=== PATIENT | female | born 1950 | race Caucasian/White ===

== ENCOUNTER 2016-11-26 10:15 | Inpatient (IN) | payer MEDICARE ==
[~2016-11-26] VITALS: Ht 152.4 cm; Wt 72.6 kg
[2016-11-26] MEDS ORDERED: LISI-519 PO (10:48)
[2016-11-26] MEDS ORDERED: ESOM1CAP16 PO (10:48)
[2016-11-26] MEDS ORDERED: LOPE2TAB3 PO (10:48)
[2016-11-26] MEDS ORDERED: MULT1TAB84 PO (10:48)
[2016-11-26] MEDS ORDERED: LYRI75CA PO (10:48)
[2016-11-26] MEDS ORDERED: METF750T PO (10:48)
[2016-11-26] MEDS ORDERED: ALPR0.5T3 PO (10:48)
[2016-11-26] MEDS ORDERED: ESTR2TAB4 PO (10:48)
[2016-11-26] MEDS ORDERED: MELO-1 PO (10:48)
[2016-11-26] MEDS ORDERED: MEDR2.5T2 PO (10:48)
[2016-11-26] MEDS ORDERED: ZOCO20TA PO (10:48)
[2016-12-08] MEDS ORDERED: BUPIVACAINE HCL PF 0.5% 30 ML VIAL NERV BLOCK ONE (07:33)
[2016-12-08] MEDS ORDERED: PROPOFOL 200 MG/20 ML AMP IV ONE (09:06)
[2016-12-08] MEDS ORDERED: ePHEDrine/NS 25 MG/5 ML SYR IV ONE (09:06)
[2016-12-08] MEDS ORDERED: NEOSTIGMINE 3 MG/3 ML SYR IV ONE (09:07)
[2016-12-08] MEDS ORDERED: PHENYLEPH/NS 1000 MCG/10 ML SYR IV ONE (09:07)
[2016-12-08] MEDS ORDERED: ONDANSETRON HCL 4 MG/2 ML VIAL IV PUSH ONE (09:07)
[2016-12-08] MEDS ORDERED: LACTATED RINGER'S 1000 ML INJ 1,000 ML IV ONE (09:07)
[2016-12-08] MEDS ORDERED: CHLORHEXIDINE GLUCONATE 2 % 1 PACK (2 CLOTHS) TOPICAL PRN (13:00)
[2016-12-08] MEDS ORDERED: LACTATED RINGER'S 1000 ML IV PRN (13:00)
[2016-12-08] MEDS ORDERED: INSULIN HUMAN REGULAR 1,000 UNITS/10 ML VIAL SQ PRN (13:00)
[2016-12-08] MEDS ORDERED: CHLORHEXIDINE GLUCONATE 4% SOLN 120 ML BTL TOPICAL SCH (13:00)
[2016-12-08] MEDS ORDERED: POVIDONE IODINE 5% (ANTISEPSIS KIT) 4 APPLICATIONS EACH NARE PRN (13:00)
[2016-12-08] MEDS ORDERED: VANCOMYCIN 1000 MG/NS 250 ML (for <70 kg) IV SCH ×2 (13:00)
[2016-12-08] MEDS ORDERED: ROPIVACAINE PERI-ARTICULAR INJECTION. P-ARTICULR SCH ×5 (13:00)
[2016-12-08] MEDS ORDERED: SODIUM CHLORID 0.9% 500 ML IV PRN (13:00)
[2016-12-08] MEDS ORDERED: METOPROLOL TARTRATE 25 MG TAB PO PRN (13:00)
[2016-12-08 13:05] VITALS: BP 186/99; PULSE 76; RESP 20; TEMP 96.9; O2SAT 97
[2016-12-08] MEDS ORDERED: GENTAMICIN SULFATE 80 MG/2 ML VIAL ONE (13:15)
[2016-12-08] MEDS ORDERED: FAMOTIDINE 20 MG/2 ML VIAL ONE (13:44)
[2016-12-08] MEDS ORDERED: DEXAMETHASONE SOD PHOS 4 MG/ML VIAL ONE (13:44)
[2016-12-08] MEDS ORDERED: MIDAZOLAM HCL 2 MG/2 ML VIAL ONE (13:44)
[2016-12-08] MEDS ORDERED: ACETAMINOPHEN 1000 MG/100 ML VIAL IV ONE (13:44)
[2016-12-08] MEDS: ceFAZolin 2 GM PREMIX 50 ML IV SCH (14:21)
--- NOTE | 2016-12-08 16:28 | HHI.FF ---
Face to Face Verification Diagnosis: (1) Osteoarthritis of left knee Physical Therapy Gait training, Transfer training, bed to chair Knee: Total knee, Protocol: Left Canvas Knee Splint: Other (at night time while sleeping) Right LE Weight Bearing: WB as tolerated Left LE Weight Bearing: WB as tolerated Nursing RN Days per Week: 3 x Week(s): 2 Nursing: Dressing changes (clean incision with alcohol and apply dry sterile dressing ) Additional Instructions Pt/INR q Thursday and , call results to America REDDY [phone] Goal INR 1.5-1.8 I have seen patient Michelle Carbone on 12/08/16. My clinical findings support the need for the requested home health care services because: Deconditioned w/ increased weakness I certify that my clinical findings support that this patient is homebound because: Post-op weakness Unsteady gait/balance America Aburot December 08, 2016 16:28
--- NOTE | 2016-12-08 16:30 | HHI.PR ---
Immediate Post Op Note Procedure Date: December 08, 2016 Pre Op Diagnosis: L Knee OA Post Op Diagnosis: Same Surgeon: Nicolás Hernández MD Cooler Tender(s): America Aburto PA-C Procedure: L TKR Complications: None Specimen(s) removed: None Estimated blood loss: <25cc Anesthesia: General, Regional Block, Local Drains: Hemovac Tourniquet time (min at mmHg) 58 mins@250 mmHg Patient to: PACU Patient Condition: Good Implant/Devices: SEE IMPLANT LOG (if applicable) Date/Time of Procedure: SEE SURGICAL CARE RECORD Nicolás Hernández MD December 08, 2016 16:30
[2016-12-08] MEDS ORDERED: CPMMACHINE (16:31)
[2016-12-08] MEDS ORDERED: fentaNYL CITRATE 250 MCG/5 ML AMP ONE ×2 (16:44)
[2016-12-08] MEDS ORDERED: ZOLPIDEM TARTRATE 5 MG TAB PO PRN (16:45)
[2016-12-08] MEDS ORDERED: ACETAMINOPHEN/HYDROcodone 325 MG/7.5 MG TAB PO PRN (16:45)
[2016-12-08] MEDS ORDERED: ALUMINUM/MAGNESIUM/SIMETH 30 ML CUP PO PRN (16:45)
[2016-12-08] MEDS ORDERED: ONDANSETRON HCL 4 MG/2 ML VIAL IVP PRN (16:45)
[2016-12-08] MEDS ORDERED: Post-op Orders (for Pharmacy) MISC XX ONE (16:45)
[2016-12-08] MEDS ORDERED: SODIUM CHLORIDE 0.9% FLUSH 5 ML FLUSH IVF PRN (16:45)
[2016-12-08] MEDS: LACTATED RINGER'S 1000 ML INJ 1,000 ML IV SCH (17:00)
--- NOTE | 2016-12-08 17:07 | RADRPT ---
EXAM DATE/TIME: 12/08/2016 16:41 [facility] COMPARISON: No previous studies available for comparison. INDICATIONS : Post op left knee MEDICAL HISTORY : None. SURGICAL HISTORY : left knee ENCOUNTER: Initial ACUITY: 1 day PAIN SCORE: Non-responsive. LOCATION: Left knee FINDINGS: Left total knee arthroplasty is noted. Hardware is intact. Alignment is anatomic. Skin monica are pr esent ventrally. CONCLUSION: Satisfactory appearance post left TKA Jerome Wu MD on December 08, 2016 at 17:05 Board Certified Radiologist. This report was verified electronically.
[2016-12-08] MEDS ORDERED: DO NOT ADM ANY ANTICOAGULANT DRUGS PRN ×2 (17:15→17:45)
[2016-12-08] MEDS ORDERED: MORPHINE SULFATE 4 MG/ML INJ IV PRN (17:30)
[2016-12-08 18:48] VITALS: BP 109/63; PULSE 95; RESP 14; TEMP 93.5; O2SAT 93
[2016-12-08 19:39] VITALS: O2SAT 93
[2016-12-08 20:35] VITALS: BP 103/53; PULSE 98; RESP 17; TEMP 96.2; O2SAT 95
[2016-12-08] MEDS ORDERED: METFORMIN 750 MG PO SCH ×2 (21:00)
[2016-12-08] MEDS: SODIUM CHLORIDE 0.9% FLUSH 5 ML FLUSH IVF SCH (21:00)
[2016-12-08] MEDS ORDERED: NON-FORMULARY DRUG (Simvastatin (Zocor) 20 MG) PO SCH (21:00)
[2016-12-08] MEDS: PRAVASTATIN SOD 40 MG TAB PO SCH (21:08)
[2016-12-08] MEDS: ACETAMINOPHEN/HYDROcodone 325 MG/7.5 MG TAB PO PRN (21:08)
[2016-12-08] MEDS: PREGABALIN 75 MG CAP PO SCH (21:08)
[2016-12-09] VITALS (10 sets, daily range): BP systolic 80–153; BP diastolic 57–69; PULSE 82–91; RESP 16–20; TEMP 96.2–97.7; O2SAT 93–100
[2016-12-09] MEDS: ACETAMINOPHEN/HYDROcodone 325 MG/7.5 MG TAB PO PRN ×3 (05:01→17:37)
--- NOTE | 2016-12-09 06:58 | PD.ORT.PN ---
Subjective Subjective Remarks POD#1 L TKR No sob,chest pain Explained operative findings;answered multiple questions Objective Vitals Vital Signs Date Time Temp Pulse Resp B/P Pulse Ox O2 Delivery O2 Flow Rate FiO2 12/09/16 04:50 97.4 86 17 111/57 94 12/09/16 00:15 96.2 88 17 80/58 93 12/08/16 20:35 96.2 98 17 103/53 95 12/08/16 20:04 Nasal Cannula 2.00 12/08/16 19:39 93 Nasal Cannula 2.00 12/08/16 18:48 93.5 95 14 109/63 93 12/08/16 17:30 98 20 118/57 94 Nasal Cannula 2 12/08/16 17:15 99 20 117/56 93 Nasal Cannula 2 12/08/16 17:00 96 20 122/59 94 Nasal Cannula 2 12/08/16 16:45 104 20 120/60 96 Nasal Cannula 2 12/08/16 16:38 98.1 104 20 139/64 93 Nasal Cannula 2 12/08/16 13:05 96.9 76 20 186/99 97 I/O 12/08/16 12/08/16 12/08/16 12/09/16 12/09/16 12/09/16 06:59 14:59 22:59 06:59 14:59 22:59 Intake Total 1980 ml 400 ml Output Total 25 ml Balance 1955 ml 400 ml Intake Oral 480 ml IV Total 100 ml 400 ml Other 1400 ml Output Estimated Blood Loss 25 ml # Voids 1 # Bowel Movements 0 Imaging Last 24 hours Impressions Knee X-Ray 12/08/16 1633 Signed Impressions: Service Date/Time: Thursday, December 08, 2016 16:41 - CONCLUSION: Satisfactory appearance post left TKA Jerome Wu MD Objective Remarks N/V intact Neg vinnie's,no calf tenderness Assessment & Plan Assessment and Plan Ortho stable Coumadin,TEDS,sequentials for DVT prophylaxsis Discharge home today [facility] PT/RN Nicolás Hernández MD December 09, 2016 06:58
[2016-12-09 07:48] LABS: INTERNATIONAL NORMALIZED RATIO 1.9 RATIO; PROTHROMBIN TIME - PATIENT 22.1 SEC (9.8-11.6)
[2016-12-09] MEDS: PANTOPRAZOLE SOD 40 MG DELAYED RELEASE TAB PO SCH (08:32)
[2016-12-09] MEDS: LOPERAMIDE HCL 2 MG CAP PO SCH (08:32)
[2016-12-09] MEDS: LACTATED RINGER'S 1000 ML INJ 1,000 ML IV SCH ×2 (08:33→18:00)
[2016-12-09] MEDS: SODIUM CHLORIDE 0.9% FLUSH 5 ML FLUSH IVF SCH ×2 (08:33→20:49)
[2016-12-09] MEDS: LISINOPRIL 5 MG TAB PO SCH (08:33)
[2016-12-09] MEDS ORDERED: COUM1TAB PO (08:59)
[2016-12-09] MEDS ORDERED: ESOMEPRAZOLE 40 MG PO SCH (09:00)
[2016-12-09] MEDS ORDERED: ESTRADIOL 1 MG TAB PO SCH (09:00)
[2016-12-09] MEDS ORDERED: ESTRADIOL PO SCH (09:00)
[2016-12-09] MEDS ORDERED: GENTAMICIN SULFATE 80 MG/2 ML VIAL IRRIGATION ONE (09:05)
--- NOTE | 2016-12-09 09:24 | PD.CONS ---
[facility] By Orthopedic doctor Katy Reason for Consult Medical management Primary Care Physician Roly Ascencio DO Diagnoses: History of Present Illness The patient is a very pleasant 66-year-old female with past medical history of hypertension, diabetes, or lipidemia, osteoarthritis bilateral knee. She came to same day surgery for left knee surgery. She says she has bilateral osteoarthritis of the knee and she will need surgery on the other knee as well. She says she has some pain in her left knee at this time, however pain is controlled by meds. No fever or chills. No chest pain, no shortness of breath. Denies nausea, vomiting, diarrhea or constipation. She complains of dry mouth. Review of Systems Except as stated in HPI: all other systems reviewed are Neg Past Family Social History Allergies: Coded Allergies: No Known Allergies (Unverified , 12/08/16) Past Medical History Hypertension, hyperlipidemia, diabetes Past Surgical History Right inguinal hernia repair Umbilical hernia repair Tonsillectomy Adenoidectomy Reported Medications Reported Meds & Active Scripts Active Coumadin (Warfarin) 1 Mg Tab 1 Mg PO DAILY PRN Reported Multivitamin Adults (Multiple Vitamins W/ Minerals) 1 Tab 1 Tab PO DAILY Zocor (Simvastatin) 20 Mg Tab 20 Mg PO HS Metformin ER (Metformin HCl) 750 Mg Jordyn 750 Mg PO HS With evening meal Lyrica (Pregabalin) 75 Mg Cap 75 Mg PO HS Loperamide (Loperamide HCl) 2 Mg Tab 2 Mg PO DAILY One tablet after each loose stool. Not to exceed 8 tablets per day. Alprazolam 0.5 Mg Tab 0.5 Mg PO Q6H PRN Meloxicam 15 Mg Tab 15 Mg PO DAILY Lisinopril 5 Mg Tab 5 Mg PO DAILY Medroxyprogesterone Acetate 2.5 Mg Tab 2.5 Mg PO DAILY Start day 21 Estrace (Estradiol) 2 Mg Tab 2.5 Mg PO DAILY Esomeprazole DR 40 Mg Capdr 40 Mg PO DAILY Family History Father had carotid artery stenosis and had CEA. Mother healthy. Both parents living in 90 decade Social History History of smoking 1 pack per day for 30 years about 1 cigarette, currently not smoking. Occasional alcohol use Denies illicit drug use Physical Exam Vital Signs Vital Signs Date Time Temp Pulse Resp B/P Pulse Ox O2 Delivery O2 Flow Rate FiO2 12/09/16 08:51 99 21 12/09/16 08:00 96.6 82 16 104/59 93 12/09/16 07:28 Room Air 12/09/16 04:50 97.4 86 17 111/57 94 12/09/16 00:15 96.2 88 17 80/58 93 12/08/16 20:35 96.2 98 17 103/53 95 12/08/16 20:04 Nasal Cannula 2.00 12/08/16 19:39 93 Nasal Cannula 2.00 12/08/16 18:48 93.5 95 14 109/63 93 12/08/16 17:30 98 20 118/57 94 Nasal Cannula 2 12/08/16 17:15 99 20 117/56 93 Nasal Cannula 2 12/08/16 17:00 96 20 122/59 94 Nasal Cannula 2 12/08/16 16:45 104 20 120/60 96 Nasal Cannula 2 12/08/16 16:38 98.1 104 20 139/64 93 Nasal Cannula 2 12/08/16 13:05 96.9 76 20 186/99 97 Physical Exam GENERAL: This is a well-nourished, well-developed patient, in no apparent distress. SKIN: No rashes, ecchymoses or lesions. Cool and dry. HEAD: Atraumatic. Normocephalic. No temporal or scalp tenderness. EYES: Pupils equal round and reactive. Extraocular motions intact. No scleral icterus. No injection or drainage. ENT: Nose without bleeding, purulent drainage or septal hematoma. Throat without erythema, tonsillar hypertrophy or exudate. Uvula midline. Airway patent. NECK: Trachea midline. No JVD or lymphadenopathy. Supple, nontender, no meningeal signs. CARDIOVASCULAR: Regular rate and rhythm without murmurs, gallops, or rubs. RESPIRATORY: Clear to auscultation. Breath sounds equal bilaterally. No wheezes , rales, or rhonchi. GASTROINTESTINAL: Abdomen soft, non-tender, nondistended. No hepato-splenomegaly , or palpable masses. No guarding. MUSCULOSKELETAL: Left knee dressing on changed by nurses c/d/di. Extremities without clubbing, cyanosis, or edema. No joint tenderness, effusion, or edema noted. No calf tenderness. Negative Homans sign bilaterally. NEUROLOGICAL: Awake and alert. Cranial nerves II through XII intact. Motor and sensory grossly within normal limits. Five out of 5 muscle strength in all muscle groups. Normal speech. Laboratory Laboratory Tests Test 12/08/16 12/09/16 12:55 07:10 Blood Type A POSITIVE Antibody Screen NEGATIVE Blood Bank Comment Prothrombin Time 22.1 Prothromb Time International 1.9 Ratio Imaging Last Impressions Knee X-Ray 12/09/16 0000 Signed Impressions: Service Date/Time: Friday, December 09, 2016 12:21 - CONCLUSION: Left knee arthroplasty. Bo Miller MD Assessment and Plan Assessment and Plan 66-year-old female with bilateral knee osteoarthritis, hypertension, hyperlipidemia, diabetes presented to same day surgery for elective left knee surgery Bilateral osteoarthritis of the knee Doctors post total knee replacement by Dr. Burns 12/09/16. Management per orthopedic doctor. Chronic medical problems appear stable at this time. Hypertension, hyperlipidemia, diabetes. Monitor closely vital signs. Monitor blood sugar. Restart home medications. DVT prophylaxis SCD/teds. Chemical prophylaxis per surgeon of choice Thank you for this consultation. The patient appears stable at this time Code Status Full code Discussed Condition With Patient, nurse Marnie Henry MD December 09, 2016 09:24
--- NOTE | 2016-12-09 11:49 | MP ---
cc: BULMARO DELONG,SHARA Lee M.D. DATE OF SURGERY 12/08/2016 PREOPERATIVE DIAGNOSIS Left knee osteoarthritis. POSTOPERATIVE DIAGNOSIS Left knee osteoarthritis. PROCEDURE Left total knee arthroplasty. COMPONENTS Cemented [employer] SURGEON Cris Hernández MD ASSESSMENT America Aburto PA-C SPECIMEN None. ESTIMATED BLOOD LOSS Less than 25 cc. COMPLICATIONS None. ANESTHESIA General, regional anesthesia adductor canal regional anesthesia, intraarticular injection. DRAINS Two. TOURNIQUET TIME 58 minutes at 250 mmHg. CONDITION Stable. PLAN OF ACTIVITY Per orders. PROCEDURE My elder assistant, America Aburto PA-C, was present for the entire surgical case. She was medically necessary for the entire case because of the complexity of the case and to facilitate the performance of the procedure. The LABORER TANBARK at the back table was not of the skill set for this case to manipulate the instruments, e.g. the multiple different soft tissue retractors, trial implants and permanent implants including bone cement. The patient originally was scheduled for a right total knee arthroplasty but when the patient was admitted to the hospital she was found to have an insect bite on the anterior aspect of the right knee. I did not feel it was considered to be medically safe to proceed ahead with surgery. The patient actually is scheduled for staged total knee arthroplasties on the right and the left, so it was decided to change the consents, for the patient to have a left total knee arthroplasty today instead of a right total knee arthroplasty today. The patient was brought into the operating room, had satisfactory regional adductor canal anesthesia, followed by general anesthesia by the Department of Anesthesia. The left lower extremity was prepped and draped in the usual sterile manner. The extremity was exsanguinated by elevation and the tourniquet was inflated to 250 mmHg. A small anterior medial exposure to the knee was made. Paramedian capsulotomy was performed, the patella dislocated laterally. The patient was found to have severe arthritis of the patellofemoral compartment, also mild lateral subluxation. The patient also was found to have significant arthritis involving the medial compartment and to a lesser degree of the lateral compartment. The remaining portion of the medial and lateral meniscus were removed. The anterior cruciate ligament was removed. The prepatellar fat pad was excised. The posterior cruciate ligament was preserved. Using the [employer] total knee arthroplasty system, IM guide was used at the distal femur to accept a 62.5-mm femoral component, a 5-degree valgus cut. Extramedullary guide was used for the tibia to accept a 67-mm tibial component. The undersurface of the patella was removed to accept a 28-mm, three-pronged patellar prosthesis. Appropriate balancing was made with a 12-mm insert. All trial components were removed and preparation for cementing was made. At this time the knee was injected with local anesthesia provided by the Department of Pharmacy. Two packages Palacos high viscosity bone cement by [employer] was used. First the tibial component was cemented which is a 67-mm tibial component, followed by the femoral component which is a 62.5-mm femoral component. Then the patella was cemented which is a 28-mm three-pronged patellar prosthesis. All excess bone cement was removed. The bone cement was allowed to harden at 12-1/2 minutes. The of the 12 x 67-mm polyethylene plastic was assembled onto the tibial tray with appropriate clipping mechanism. The tourniquet was deflated. The wound was irrigated with 4000 cc of sterile saline. The wound itself was dry. Using no thumbs technique, approximately a 2-inch lateral release was performed with the patella and with this the patella was found to track well within the patellofemoral compartment. The wound was closed in routine manner with two 1/8-inch Hemovac drains hooked up an Autovac system. The capsule and extensor mechanism were repaired using multiple interrupted #2 Ticron sutures. The subcuticular layer was closed with 0 Vicryl and 2-0 Vicryl. The skin was approximated with skin monica. Sterile dressings were applied. The patient tolerated the procedure well and arrived in the recovery room in stable and satisfactory condition. MD SHELBI Baron/SSB /4:18 PM /11:33 AM
[2016-12-09] MEDS ORDERED: PHENYLEPH/NS 1000 MCG/10 ML SYR IV ONE ×2 (12:00)
[2016-12-09] MEDS ORDERED: PROPOFOL 200 MG/20 ML AMP IV ONE (12:00)
[2016-12-09] MEDS ORDERED: ePHEDrine/NS 25 MG/5 ML SYR IV ONE (12:00)
[2016-12-09] MEDS ORDERED: ONDANSETRON HCL 4 MG/2 ML VIAL IV PUSH ONE (12:00)
[2016-12-09] MEDS ORDERED: NEOSTIGMINE 3 MG/3 ML SYR IV ONE (12:00)
--- NOTE | 2016-12-09 12:55 | RADRPT ---
EXAM DATE/TIME: 12/09/2016 12:21 [facility] COMPARISON: No previous studies available for comparison. INDICATIONS : Left knee pain; fell on knee yesterday and today. MEDICAL HISTORY : None. SURGICAL HISTORY : Total knee replacement, left. ENCOUNTER: Subsequent ACUITY: 2 days PAIN SCORE: 7/10 LOCATION: Left knee FINDINGS: Two view examination of the left knee demonstrates left knee arthroplasty. Postsurgical changes. No h ardware loosening or fracture. Extensive soft tissue swelling anteriorly. CONCLUSION: Left knee arthroplasty. Bo Miller MD on December 09, 2016 at 12:53 Board Certified Radiologist. This report was verified electronically.
[2016-12-09] MEDS ORDERED: GENTAMICIN SULFATE 80 MG/2 ML VIAL ONE (13:08)
[2016-12-09 13:50] LABS: HEMATOCRIT 30.2 % (35.0-46.0); REVIEW FLAG FINAL
[2016-12-09] MEDS ORDERED: fentaNYL CITRATE 250 MCG/5 ML AMP ONE (14:18)
[2016-12-09] MEDS ORDERED: ACETAMINOPHEN 1000 MG/100 ML VIAL IV ONE (14:45)
[2016-12-09] MEDS ORDERED: MIDAZOLAM HCL 2 MG/2 ML VIAL ONE (14:46)
[2016-12-09] MEDS ORDERED: METOCLOPRAMIDE HCL 10 MG/2 ML VIAL ONE (14:47)
[2016-12-09] MEDS ORDERED: FAMOTIDINE 20 MG/2 ML VIAL ONE (14:47)
[2016-12-09] MEDS ORDERED: VANCOMYCIN HCL 1000 MG VIAL ONE (15:23)
[2016-12-09] MEDS: ceFAZolin 2 GM PREMIX 50 ML IV SCH (15:25)
[2016-12-09] MEDS ORDERED: WARFARIN SOD 5 MG TAB PO SCH (16:00)
--- NOTE | 2016-12-09 16:19 | OTSOAPIP ---
TIME SESSION COMPLETED: PM TREATMENT TIME: 0 MINS. CHART REVIEWED. ATTEMPTED TO SEE FOR OT HOWEVER OFF FLOOR. WILL FOLLOW ABLE. Therapist: JULEE HINDS OT/L Signature on file
--- NOTE | 2016-12-09 16:29 | HHI.PR ---
Immediate Post Op Note Procedure Date: December 09, 2016 Pre Op Diagnosis: L Knee Traumatic Wound Dehiscence S/P L TKR Post Op Diagnosis: Same Surgeon: Nicolás Hernández MD Powder Core Tester(s): Staff Procedure: L knee Irrigation and debridement;Repair wound dehiscence Complications: None Estimated blood loss: Minimal Anesthesia: General Drains: Hemovac Patient to: PACU Patient Condition: Good Nicolás Hernández MD December 09, 2016 16:29
[2016-12-09] MEDS ORDERED: DO NOT ADM ANY ANTICOAGULANT DRUGS PRN (17:15)
--- NOTE | 2016-12-09 17:15 | RADRPT ---
EXAM DATE/TIME: 12/09/2016 16:57 [facility] COMPARISON: KNEE LEFT LTD (1 OR 2VWS), December 09, 2016, 12:21. INDICATIONS : Post op left knee replacement. MEDICAL HISTORY : None. SURGICAL HISTORY : None. ENCOUNTER: Initial ACUITY: 1 day PAIN SCORE: 0/10 LOCATION: Left knee FINDINGS: AP and lateral views of the left knee demonstrate changes consistent with recent total knee arthropla sty with metallic hardware in place in the distal femur and proximal tibia. There is a radiolucent pa tellar component. There is soft tissue gas present, as expected. A surgical drain is in place. CONCLUSION: Expected changes following recent left total knee arthroplasty. Jerome Guzman MD on December 09, 2016 at 17:13 Board Certified Radiologist. This report was verified electronically.
[2016-12-09] MEDS: NYSTAT/DIPHENHY/LIDO MOUTHWASH (Adult) 120ML SWISH-SWAL SCH ×2 (17:49→20:52)
--- NOTE | 2016-12-09 20:45 | MP ---
cc: SHARA MOSES DATE OF SURGERY 12/09/16 PREOPERATIVE DIAGNOSIS 1. Left knee, atraumatic wound dehiscence. 2. Status post left total knee arthroplasty. POSTOPERATIVE DIAGNOSIS 1. Left knee, atraumatic wound dehiscence. 2. Status post left total knee arthroplasty. PROCEDURE Left knee irrigation and debridement; repair of traumatic wound dehiscence SURGEON Betty Sterling MD SOILS TECHNICIAN Staff ANESTHESIA General COMPLICATIONS None ESTIMATED BLOOD LOSS None. TOURNIQUET TIME None used. DRAINS Two Hemovac drains DISPOSITION Condition stable PLAN OF ACTIVITY As per orders. INDICATIONS A 66-year-old female sustained a traumatic wound dehiscence of her left knee this morning. It was unwitnessed, but she stated that she was raising her leg while sitting in the chair and she fell out of the chair onto her left knee. She had wound dehiscence. The patient was made n.p.o. Sterile dressings were repeatedly applied and the patient was taken to the operating room for surgical management. PROCEDURE IN DETAIL The patient was brought into operating room and had satisfactory general endotracheal anesthesia by Dr. Memo Mercado, Department of Anesthesia. Left lower extremity was prepped and draped in the usual sterile manner. The patient had complete 100% dehiscence of the wound. All of the monica were removed, also the subcutaneous Vicryl sutures were also dehisced. The patient had mild dehiscence involving the capsule inferiorly. The wound itself was irrigated with water pick irrigation using 3000 mL of sterile saline antibiotic solution. Debridement was performed and evacuation of hematoma. Very meticulous debridement was made over the soft tissues. The capsule was repaired with #2 Tycron suture. Subcutaneous layers was closed in multiple layers using 0 Vicryl and 2-0 Vicryl suture. The skin was approximated with multiple interrupted 2-0 nylon and 3-0 nylon sutures. Wound was closed over two Hemovac drains. Sterile dressings were applied. The patient tolerated the procedure well and went to recovery room in stable and satisfactory condition. MD SHELBI Baron/ /4:33 PM /8:35 PM
[2016-12-09] MEDS: PRAVASTATIN SOD 40 MG TAB PO SCH (20:49)
[2016-12-09] MEDS: PREGABALIN 75 MG CAP PO SCH (20:49)
[2016-12-10] VITALS (8 sets, daily range): BP systolic 128–179; BP diastolic 63–83; PULSE 17–109; RESP 17–19; TEMP 96.4–98.9; O2SAT 92–99
[2016-12-10] MEDS: ACETAMINOPHEN/HYDROcodone 325 MG/7.5 MG TAB PO PRN ×4 (02:43→16:37)
[2016-12-10 06:04] LABS: HEMATOCRIT 23.5 % (35.0-46.0); REVIEW FLAG FINAL
[2016-12-10 06:14] LABS: INTERNATIONAL NORMALIZED RATIO 1.8 RATIO; PROTHROMBIN TIME - PATIENT 20.5 SEC (9.8-11.6)
[2016-12-10] MEDS: LACTATED RINGER'S 1000 ML INJ 1,000 ML IV SCH (06:30)
[2016-12-10] MEDS: ALPRAZolam 0.5 MG TAB PO PRN ×2 (06:36→19:55)
--- NOTE | 2016-12-10 07:39 | PD.ORT.PN ---
Subjective Subjective Remarks pt complaining of post op knee pain Objective Vitals Vital Signs Date Time Temp Pulse Resp B/P Pulse Ox O2 Delivery O2 Flow Rate FiO2 12/10/16 07:35 97.3 86 17 146/83 99 12/10/16 06:30 96.6 95 19 179/76 96 12/10/16 02:30 96.4 17 17 142/67 97 12/09/16 22:30 97.0 85 18 102/61 98 12/09/16 21:42 99 Nasal Cannula 2.00 12/09/16 18:30 96.4 84 18 120/59 100 12/09/16 17:16 Nasal Cannula 2.00 12/09/16 17:00 89 17 118/59 96 Nasal Cannula 2 12/09/16 16:45 93 22 120/57 96 Nasal Cannula 2 12/09/16 16:30 97.8 95 12 130/66 96 Nasal Cannula 2 12/09/16 12:00 97.1 84 18 110/59 97 12/09/16 10:30 97.7 89 18 140/66 98 12/09/16 09:30 97.5 91 20 153/69 96 12/09/16 08:51 99 21 12/09/16 08:00 96.6 82 16 104/59 93 I/O 12/09/16 12/09/16 12/09/16 12/10/16 12/10/16 12/10/16 07:00 15:00 23:00 07:00 15:00 23:00 Intake Total 880 ml 1480 ml 480 ml Output Total 110 ml Balance 880 ml 1370 ml 480 ml Intake Oral 480 ml 480 ml 480 ml IV Total 400 ml Other 1000 ml Output Drainage Total 60 ml Estimated Blood Loss 50 ml # Voids 3 1 1 # Bowel Movements 0 0 0 Result Diagram: 12/10/16 0515 Other Results Laboratory Tests Test 12/10/16 05:15 Prothrombin Time 20.5 SEC (9.8-11.6) Prothromb Time International 1.8 RATIO Ratio Imaging Last 24 hours Impressions Knee X-Ray 12/08/16 1633 Signed Impressions: Service Date/Time: Thursday, December 08, 2016 16:41 - CONCLUSION: Satisfactory appearance post left TKA Jerome Wu MD Objective Remarks left knee dressing dry and intact, ice on knee, drain intact N/V intact Neg vinnie's,no calf tenderness Assessment & Plan Assessment and Plan POD # 2 s/p L TKA, POD #1 s/p L knee repair of wound dehiscence PT-WBAT low dose coumadin for dvt prop- hold today per protocol iron sulfate BID hgb 8.1 this am, recheck CBC tomorrow am IV abx x 48 hours anticipate discharge home with [facility] Thursday America Aburto December 10, 2016 07:39
[2016-12-10] MEDS: FERROUS SULFATE 325 MG (65 MG ELEMENTAL IRON) TAB PO SCH ×2 (08:55→19:55)
[2016-12-10] MEDS: PANTOPRAZOLE SOD 40 MG DELAYED RELEASE TAB PO SCH (08:55)
[2016-12-10] MEDS: LISINOPRIL 5 MG TAB PO SCH (08:55)
[2016-12-10] MEDS: LOPERAMIDE HCL 2 MG CAP PO SCH (08:55)
[2016-12-10] MEDS: NYSTAT/DIPHENHY/LIDO MOUTHWASH (Adult) 120ML SWISH-SWAL SCH ×4 (08:56→20:34)
[2016-12-10] MEDS: SODIUM CHLORIDE 0.9% FLUSH 5 ML FLUSH IVF SCH ×2 (09:00→19:56)
--- NOTE | 2016-12-10 09:05 | HHI.PR ---
Subjective Remarks Patient did fell yesterday and she went to the OR, now she has a Hemovac in place. Says she has some pain in her left knee. Denies fever or chills. No sore throat at this time. Feels much better. Denies cough. Denies chest pain or palpitations. No nausea, vomiting, diarrhea or constipation. Objective Vitals Vital Signs Date Time Temp Pulse Resp B/P Pulse Ox O2 Delivery O2 Flow Rate FiO2 12/10/16 07:35 97.3 86 17 146/83 99 12/10/16 06:30 96.6 95 19 179/76 96 12/10/16 02:30 96.4 17 17 142/67 97 12/09/16 22:30 97.0 85 18 102/61 98 12/09/16 21:42 99 Nasal Cannula 2.00 12/09/16 18:30 96.4 84 18 120/59 100 12/09/16 17:16 Nasal Cannula 2.00 12/09/16 17:00 89 17 118/59 96 Nasal Cannula 2 12/09/16 16:45 93 22 120/57 96 Nasal Cannula 2 12/09/16 16:30 97.8 95 12 130/66 96 Nasal Cannula 2 12/09/16 12:00 97.1 84 18 110/59 97 12/09/16 10:30 97.7 89 18 140/66 98 12/09/16 09:30 97.5 91 20 153/69 96 I/O 12/09/16 12/09/16 12/09/16 12/10/16 12/10/16 12/10/16 07:00 15:00 23:00 07:00 15:00 23:00 Intake Total 880 ml 1480 ml 480 ml Output Total 110 ml Balance 880 ml 1370 ml 480 ml Intake Oral 480 ml 480 ml 480 ml IV Total 400 ml Other 1000 ml Output Drainage Total 60 ml Estimated Blood Loss 50 ml # Voids 3 1 1 # Bowel Movements 0 0 0 Result Diagram: 12/10/16 0515 Imaging Last Impressions Knee X-Ray 12/09/16 0000 Signed Impressions: Service Date/Time: Friday, December 09, 2016 16:57 - CONCLUSION: Expected changes following recent left total knee arthroplasty. Jerome Guzman MD Objective Remarks GENERAL: This is a well-nourished, well-developed patient, in no apparent distress. SKIN: No rashes, ecchymoses or lesions. Cool and dry. HEAD: Atraumatic. Normocephalic. No temporal or scalp tenderness. EYES: Pupils equal round and reactive. Extraocular motions intact. No scleral icterus. No injection or drainage. ENT: Nose without bleeding, purulent drainage or septal hematoma. Throat without erythema, tonsillar hypertrophy or exudate. Uvula midline. Airway patent. NECK: Trachea midline. No JVD or lymphadenopathy. Supple, nontender, no meningeal signs. CARDIOVASCULAR: Regular rate and rhythm without murmurs, gallops, or rubs. RESPIRATORY: Clear to auscultation. Breath sounds equal bilaterally. No wheezes , rales, or rhonchi. GASTROINTESTINAL: Abdomen soft, non-tender, nondistended. No hepato-splenomegaly , or palpable masses. No guarding. MUSCULOSKELETAL: Left knee dressing c/d/i, hemovac in place. Extremities without clubbing, cyanosis, or edema. No calf tenderness. Negative Homans sign bilaterally. NEUROLOGICAL: Awake and alert. Cranial nerves II through XII intact. Motor and sensory grossly within normal limits. Five out of 5 muscle strength in all muscle groups. Normal speech. A/P Assessment and Plan 66-year-old female with bilateral knee osteoarthritis, hypertension, hyperlipidemia, diabetes presented to same day surgery for elective left knee surgery Bilateral osteoarthritis of the knee Status post left total knee replacement by Dr. Burns 12/09/16, she fell 12/09 and now has a wound vac in place. Management per orthopedic doctor. Chronic medical problems appear stable at this time. Hypertension, hyperlipidemia, diabetes. Monitor closely vital signs. Monitor blood sugar. Restart home medications. Tachycardia and slightly elevated BP likely 2/2 pain. DVT prophylaxis SCD/teds. Chemical prophylaxis per surgeon of choice Thank you for this consultation. The patient appears stable at this time. Monitor. Code Status Full code Discussed Condition With Patient, nurse Medically stable at this time. H.H dropped to 8.1 from 10. Monitor. Marnie Henry MD December 10, 2016 09:05
[2016-12-10] MEDS: WARFARIN SOD 5 MG TAB PO SCH (16:00)
[2016-12-10] MEDS: PRAVASTATIN SOD 40 MG TAB PO SCH (19:55)
[2016-12-10] MEDS: PREGABALIN 75 MG CAP PO SCH (19:55)
[2016-12-11] VITALS: BP 130/71; PULSE 109; RESP 19; TEMP 98.4; O2SAT 93
[2016-12-11] MEDS: ACETAMINOPHEN/HYDROcodone 325 MG/7.5 MG TAB PO PRN ×4 (04:55→20:00)
[2016-12-11] MEDS: LACTATED RINGER'S 1000 ML INJ 1,000 ML IV SCH ×2 (05:28→20:00)
[2016-12-11 06:14] LABS: INTERNATIONAL NORMALIZED RATIO 1.2 RATIO; PROTHROMBIN TIME - PATIENT 13.8 SEC (9.8-11.6)
[2016-12-11 06:23] LABS: HEMATOCRIT 26.4 % (35.0-46.0); MEAN CELL VOLUME 82.4 FL (80.0-100.0); MEAN CORPUSCULAR HEMOGLOBIN 27.6 PG (27.0-34.0); MEAN CORPUSCULAR HGB CONC 33.5 % (32.0-36.0); PLATELET COUNT 176 TH/MM3 (150-450); RED BLOOD COUNT 3.21 MIL/MM3 (4.00-5.30); RED CELL DISTRIBUTION WIDTH 13.3 % (11.6-17.2); REVIEW FLAG FINAL; WHITE BLOOD COUNT 11.1 TH/MM3 (4.0-11.0)
[2016-12-11 08:00] VITALS: BP 144/76; PULSE 103; RESP 18; TEMP 99.3; O2SAT 92
[2016-12-11] MEDS ORDERED: DEXTROSE 50% IN WATER 50 ML VIAL(D50) IV PRN (08:30)
[2016-12-11] MEDS ORDERED: GLUCAGON 1 MG/ML VIAL OTHER PRN (08:30)
[2016-12-11] MEDS: SODIUM CHLORIDE 0.9% FLUSH 5 ML FLUSH IVF SCH ×2 (09:00→21:00)
[2016-12-11] MEDS: NYSTAT/DIPHENHY/LIDO MOUTHWASH (Adult) 120ML SWISH-SWAL SCH ×4 (09:32→20:01)
[2016-12-11] MEDS: LOPERAMIDE HCL 2 MG CAP PO SCH (09:32)
[2016-12-11] MEDS: FERROUS SULFATE 325 MG (65 MG ELEMENTAL IRON) TAB PO SCH ×2 (09:32→19:56)
[2016-12-11] MEDS: PANTOPRAZOLE SOD 40 MG DELAYED RELEASE TAB PO SCH (09:32)
[2016-12-11] MEDS: LISINOPRIL 5 MG TAB PO SCH (09:32)
[2016-12-11] MEDS: INSULIN ASPART SUPPLEMENTAL SCALE SQ SCH ×3 (11:00→20:01)
[2016-12-11 12:00] VITALS: BP 129/60; PULSE 97; RESP 18; TEMP 97.4; O2SAT 94
--- NOTE | 2016-12-11 13:57 | HHI.PR ---
Subjective Remarks Follow-up left knee arthroplasty. States she is doing better ambulating with a walker, at her side. She is determined to go home. Discussed with RN Objective Vitals Vital Signs Date Time Temp Pulse Resp B/P Pulse Ox O2 Delivery O2 Flow Rate FiO2 12/11/16 10:31 18 12/11/16 08:00 99.3 103 18 144/76 92 12/11/16 00:00 98.4 109 19 130/71 93 12/10/16 20:00 98.7 109 18 146/73 93 12/10/16 18:06 Nasal Cannula 2.00 12/10/16 15:54 98.9 96 17 143/78 93 I/O 12/10/16 12/10/16 12/10/16 12/11/16 12/11/16 12/11/16 07:00 15:00 23:00 07:00 15:00 23:00 Intake Total 480 ml 0 ml 240 ml 240 ml Output Total 110 ml Balance 480 ml -110 ml 240 ml 240 ml Intake Oral 480 ml 0 ml 240 ml 240 ml Drainage Total 110 ml # Voids 1 1 1 2 # Bowel Movements 0 0 1 0 Result Diagram: 12/11/16 0545 Imaging Last Impressions Knee X-Ray 12/09/16 0000 Signed Impressions: Service Date/Time: Friday, December 09, 2016 16:57 - CONCLUSION: Expected changes following recent left total knee arthroplasty. Jerome Guzman MD Objective Remarks GENERAL: This is a well-nourished, well-developed patient, in no apparent distress. SKIN: No rashes, ecchymoses or lesions. Cool and dry. HEAD: Atraumatic. Normocephalic. No temporal or scalp tenderness. EYES: Pupils equal round and reactive. Extraocular motions intact. No scleral icterus. No injection or drainage. ENT: Nose without bleeding, purulent drainage or septal hematoma. Throat without erythema, tonsillar hypertrophy or exudate. Uvula midline. Airway patent. NECK: Trachea midline. No JVD or lymphadenopathy. Supple, nontender, no meningeal signs. CARDIOVASCULAR: Regular rate and rhythm without gallops, or rubs. Systolic murmur RESPIRATORY: Clear to auscultation. Breath sounds equal bilaterally. No wheezes , rales, or rhonchi. GASTROINTESTINAL: Abdomen soft, non-tender, nondistended. No hepato-splenomegaly , or palpable masses. No guarding. MUSCULOSKELETAL: Left knee dressing c/d/i Extremities without clubbing, cyanosis, or edema. No calf tenderness. Negative Homans sign bilaterally. NEUROLOGICAL: Awake and alert. Cranial nerves II through XII intact. Motor and sensory grossly within normal limits. Five out of 5 muscle strength in all muscle groups. Normal speech. A/P Problem List: (1) Osteoarthritis of left knee ICD Code: M17.12 Status: Acute Assessment and Plan 66-year-old female with bilateral knee osteoarthritis, hypertension, hyperlipidemia, diabetes presented to same day surgery for elective left knee surgery Bilateral osteoarthritis of the knee Status post left total knee replacement by Dr. Burns 12/09/16, she fell 12/09 wound vac placed which was already discontinued. Stable continue postoperative care with physical therapy, wound care, incentive spirometry, pain management and DVT prophylaxis with Coumadin Management per orthopedic doctor. Anemia secondary to acute blood loss. Monitor date hemoglobin the morning Mild leukocytosis likely reactive. Monitor for infection check temperature. Chronic medical problems appear stable at this time. Hypertension, hyperlipidemia, diabetes. Monitor closely vital signs. Monitor blood sugar. Restart home medications. Tachycardia and slightly elevated BP likely 2/2 pain. DVT prophylaxis SCD/teds. Coumadin Discharge Planning Discharge per orthopedic surgery Migel Camacho MD December 11, 2016 13:56
[2016-12-11 15:57] VITALS: O2SAT 93
[2016-12-11 16:00] VITALS: BP 130/67; PULSE 104; RESP 18; TEMP 98; O2SAT 95
--- NOTE | 2016-12-11 16:09 | PD.ORT.PN ---
Subjective Subjective Remarks pt doing better, ready to be discharged home Objective Vitals Vital Signs Date Time Temp Pulse Resp B/P Pulse Ox O2 Delivery O2 Flow Rate FiO2 12/11/16 15:57 93 Nasal Cannula 2.00 12/11/16 12:00 97.4 97 18 129/60 94 12/11/16 10:31 18 12/11/16 08:00 99.3 103 18 144/76 92 12/11/16 00:00 98.4 109 19 130/71 93 12/10/16 20:00 98.7 109 18 146/73 93 12/10/16 18:06 Nasal Cannula 2.00 I/O 12/10/16 12/10/16 12/10/16 12/11/16 12/11/16 12/11/16 07:00 15:00 23:00 07:00 15:00 23:00 Intake Total 480 ml 0 ml 240 ml 240 ml Output Total 110 ml Balance 480 ml -110 ml 240 ml 240 ml Intake Oral 480 ml 0 ml 240 ml 240 ml Drainage Total 110 ml # Voids 1 1 1 2 # Bowel Movements 0 0 1 0 Result Diagram: 12/11/16 0545 Other Results Laboratory Tests Test 12/11/16 05:45 Prothrombin Time 13.8 SEC (9.8-11.6) Prothromb Time International 1.2 RATIO Ratio Imaging Last 24 hours Impressions Knee X-Ray 12/08/16 1633 Signed Impressions: Service Date/Time: Thursday, December 08, 2016 16:41 - CONCLUSION: Satisfactory appearance post left TKA Jerome Wu MD Objective Remarks seen by Dr. Nicolás Hernández and charge nurse, Winsome left knee dressing dry and intact N/V intact Neg vinnie's,no calf tenderness Assessment & Plan Assessment and Plan POD # 3 s/p L TKA, POD #2 s/p L knee repair of wound dehiscence PT-WBAT low dose coumadin for dvt prop- rx was sent to [facility] pain rx in chart discharge today with [facility] nursing and PT, orthopedically stable America Aburto December 11, 2016 16:09
[2016-12-11] MEDS: WARFARIN SOD 5 MG TAB PO SCH (17:00)
[2016-12-11] MEDS: PREGABALIN 75 MG CAP PO SCH (19:56)
[2016-12-11] MEDS: PRAVASTATIN SOD 40 MG TAB PO SCH (19:56)
[2016-12-11 20:00] VITALS: BP 130/60; PULSE 101; RESP 20; TEMP 97.7; O2SAT 93
[2016-12-12] VITALS: BP 125/71; PULSE 101; RESP 18; TEMP 97.6; O2SAT 94
[2016-12-12] MEDS: ACETAMINOPHEN/HYDROcodone 325 MG/7.5 MG TAB PO PRN ×2 (04:37→11:47)
[2016-12-12] MEDS: INSULIN ASPART SUPPLEMENTAL SCALE SQ SCH ×2 (05:47→11:00)
[2016-12-12 06:51] LABS: INTERNATIONAL NORMALIZED RATIO 1.2 RATIO
--- NOTE | 2016-12-12 07:14 | PD.ORT.PN ---
Subjective Subjective Remarks pt doing well, ready to be discharged home discharge was held yesterday due to home health not being approved by insurance yet Objective Vitals Vital Signs Date Time Temp Pulse Resp B/P Pulse Ox O2 Delivery O2 Flow Rate FiO2 12/12/16 00:00 97.6 101 18 125/71 94 12/11/16 20:00 97.7 101 20 130/60 93 12/11/16 16:00 98.0 104 18 130/67 95 12/11/16 15:57 93 Nasal Cannula 2.00 12/11/16 15:17 18 12/11/16 12:00 97.4 97 18 129/60 94 12/11/16 08:00 99.3 103 18 144/76 92 I/O 12/11/16 12/11/16 12/11/16 12/12/16 12/12/16 12/12/16 07:00 15:00 23:00 07:00 15:00 23:00 Intake Total 240 ml 600 ml 780 ml 240 ml Output Total 600 ml Balance 240 ml 600 ml 780 ml -360 ml Intake Oral 240 ml 600 ml 780 ml 240 ml Output Urine Total 600 ml # Voids 2 3 2 1 # Bowel Movements 0 1 1 0 Result Diagram: 12/11/16 0545 Other Results Laboratory Tests Test 12/12/16 06:19 Prothrombin Time 13.0 SEC (9.8-11.6) Prothromb Time International 1.2 RATIO Ratio Imaging Last 24 hours Impressions Knee X-Ray 12/08/16 1633 Signed Impressions: Service Date/Time: Thursday, December 08, 2016 16:41 - CONCLUSION: Satisfactory appearance post left TKA Jerome Wu MD Objective Remarks seen by Dr. Nicolás Hernández left knee dressing dry and intact N/V intact Neg vinnie's,no calf tenderness Assessment & Plan Assessment and Plan POD # 4 s/p L TKA, POD #3 s/p L knee repair of wound dehiscence PT-WBAT low dose coumadin for dvt prop- rx was sent to [facility] pain rx in chart discharge today with [facility] nursing and PT, orthopedically stable America Aburto December 12, 2016 07:14
[2016-12-12 08:00] VITALS: BP 135/63; PULSE 104; RESP 18; TEMP 98; O2SAT 93
[2016-12-12] MEDS: LACTATED RINGER'S 1000 ML INJ 1,000 ML IV SCH (08:30)
[2016-12-12] MEDS: SODIUM CHLORIDE 0.9% FLUSH 5 ML FLUSH IVF SCH (09:00)
[2016-12-12] MEDS: NYSTAT/DIPHENHY/LIDO MOUTHWASH (Adult) 120ML SWISH-SWAL SCH ×2 (09:05→11:46)
[2016-12-12] MEDS: FERROUS SULFATE 325 MG (65 MG ELEMENTAL IRON) TAB PO SCH (09:09)
[2016-12-12] MEDS: PANTOPRAZOLE SOD 40 MG DELAYED RELEASE TAB PO SCH (09:09)
[2016-12-12] MEDS: LOPERAMIDE HCL 2 MG CAP PO SCH (09:09)
[2016-12-12] MEDS: LISINOPRIL 5 MG TAB PO SCH (09:09)
[2016-12-12] MEDS: ALPRAZolam 0.5 MG TAB PO PRN (09:09)
[2016-12-12] MEDS ORDERED: WARFARIN SOD 5 MG TAB PO ONE (12:00)
[2016-12-12 12:44] VITALS: O2SAT 94
[2016-12-12 12:47] VITALS: RESP 18
[2016-12-12] MEDS ORDERED: HYDR-3288 PO (14:52)
--- NOTE | 2016-12-12 17:23 | HHI.PR ---
Subjective Remarks f/u for medical management patient stated she is very anxious to go home and wants to go home immediately. denied any pain. she stated she has no concerns. remains afebrile. Objective Vitals Vital Signs Date Time Temp Pulse Resp B/P Pulse Ox O2 Delivery O2 Flow Rate FiO2 12/12/16 12:47 18 12/12/16 12:44 94 12/12/16 08:00 98.0 104 18 135/63 93 12/12/16 00:00 97.6 101 18 125/71 94 12/11/16 20:00 97.7 101 20 130/60 93 I/O 12/11/16 12/11/16 12/11/16 12/12/16 12/12/16 12/12/16 07:00 15:00 23:00 07:00 15:00 23:00 Intake Total 240 ml 600 ml 780 ml 240 ml Output Total 600 ml Balance 240 ml 600 ml 780 ml -360 ml Intake Oral 240 ml 600 ml 780 ml 240 ml Output Urine Total 600 ml # Voids 2 3 2 1 # Bowel Movements 0 1 1 0 Result Diagram: 12/11/16 0545 Objective Remarks GENERAL: in NAD CARDIOVASCULAR: Regular rate and rhythm without murmurs, gallops, or rubs. RESPIRATORY: Breath sounds equal bilaterally. No accessory muscle use. GASTROINTESTINAL: Abdomen soft, non-tender, nondistended. Medications and IVs Current Medications Lactated Ringer's 1,000 ml @ 30 mls/hr Q24H PRN IV SEE LABEL COMMENTS Last administered on 12/08/16t 12:50; Start 12/08/16 at 13:00; Stop 12/11/16 at 12:59 ; Status DC Sodium Chloride (NS 500 ml Inj) 500 ml @ 30 mls/hr [id number] PRN IV SEE LABEL COMMENTS; Start 12/08/16 at 13:00; Stop 12/11/16 at 12:59; Status DC Metoprolol Tartrate (Lopressor) 25 mg FLAP MAKER PRN PO SEE LABEL COMMENTS; Start 12/08/16 at 13:00; Stop 12/11/16 at 12:59; Status DC Povidone Iodine (Betadine 5% Antisepsis Kit) 1 applic FLAP MAKER PRN EACH NARE SEE LABEL COMMENTS; Start 12/08/16 at 13:00; Stop 12/11/16 at 12:59; Status DC Chlorhexidine Gluconate (Chlorhexidine 2% Cloth) 3 pack FLAP MAKER PRN TOPICAL SEE LABEL COMMENTS; Start 12/08/16 at 13:00; Stop 12/11/16 at 12:59; Status DC Insulin Human Regular (NovoLIN R INJ) See Protocol Table ... FLAP MAKER PRN SQ SEE PROTOCOL TABLE; Start 12/08/16 at 13:00; Stop 12/11/16 at 12:59; Status DC Chlorhexidine Gluconate 1 applic 1 applic ONCE TOPICAL ; Start 12/08/16 at 13:00 ; Stop 12/11/16 at 12:59; Status DC Cefazolin Sodium/ Dextrose 50 ml @ 100 mls/hr FLAP MAKER IV Last administered on 12/09/16 15:25; Start 12/08/16 at 13:00; Stop 12/11/16 at 12:59; Status DC Vancomycin HCl 1000 mg/Sodium Chloride 250 ml @ 250 mls/hr FLAP MAKER IV Last administered on 12/08/16 13:15; Start 12/08/16 at 13:00; Stop 12/11/16 at 12:59 ; Status DC Ropivacaine/ Ketorolac Tromethamine/ Epinephrine HCl/ Clonidine/Sodium Chloride (Naropin 0.5% Pf Inj/Toradol Inj/ Adrenalin (1:1000) Inj/ Duraclon Inj/NS Inj) 100 ml @ 200 mls/hr ONCE P-ARTICULR Last administered on 12/08/16 15:01; Start 12/08/16 at 13:00; Stop 12/08/16 at 21:00; Status DC Gentamicin Sulfate (Gentamicin Inj) 240 mg STK-MED ONCE .ROUTE Last administered on 12/08/16 14:59; Start 12/08/16 at 13:15; Stop 12/08/16 at 13:16 ; Status DC Midazolam HCl (Versed Inj) 2 mg STK-MED ONCE .ROUTE ; Start 12/08/16 at 13:44; Stop 12/08/16 at 13:45; Status DC Dexamethasone Sodium Phosphate (Decadron Inj) 4 mg STK-MED ONCE .ROUTE ; Start 12/08/16 at 13:44; Stop 12/08/16 at 13:45; Status DC Famotidine (Pepcid Inj) 20 mg STK-MED ONCE .ROUTE ; Start 12/08/16 at 13:44; Stop 12/08/16 at 13:45; Status DC Acetaminophen (Ofirmev Inj) 1,000 mg STK-MED ONCE IV ; Start 12/08/16 at 13:44; Stop 12/08/16 at 13:45; Status DC Alprazolam (Xanax) 0.5 mg Q6H PRN PO ANXIETY Last administered on 12/12/16 09: 09; Start 12/08/16 at 16:30; Stop 12/12/16 at 15:24; Status DC Estradiol (Estradiol) 2.5 mg DAILY PO ; Start 12/09/16 at 09:00; Status UNV Lisinopril (Prinivil) 5 mg DAILY PO Last administered on 12/12/16 09:09; Start 12/09/16 at 09:00; Stop 12/12/16 at 15:24; Status DC Loperamide HCl (Imodium) 2 mg DAILY PO Last administered on 12/12/16 09:09; Start 12/09/16 at 09:00; Stop 12/12/16 at 15:24; Status DC Medroxyprogesterone Acetate (Provera) 2.5 mg DAILY PO Last administered on 12/12 09:09; Start 12/09/16 at 09:00; Stop 12/12/16 at 15:24; Status DC Pregabalin (Lyrica) 75 mg HS PO Last administered on 12/11/16 19:56; Start at 21:00; Stop 12/12/16 at 15:24; Status DC Non-Formulary Medication 40 mg DAILY PO ; Start 12/09/16 at 09:00; Status UNV Non-Formulary Medication 750 mg HS PO BSM; Start 12/08/16 at 21:00; Status UNV Non-Formulary Medication 20 mg 20 mg HS PO CM; Start 12/08/16 at 21:00; Status UNV Lactated Ringer's (Lr 1000 ml Inj) 1,000 ml @ 80 mls/hr Q50O55H IV Last administered on 12/11/16 05:28; Start 12/08/16 at 17:00; Stop 12/12/16 at 15:24 ; Status DC IV Flush (NS Flush) 2 ml UNSCH PRN IVF FLUSH AFTER USING IV ACCESS; Start 12/08 at 16:45; Stop 12/12/16 at 15:24; Status DC IV Flush 2 ml 2 ml BID IVF Last administered on 12/11/16 09:00; Start at 21:00; Stop 12/12/16 at 15:24; Status DC Cefazolin Sodium/ Sodium Chloride (Ancef Inj/NS Inj) 100 ml @ 200 mls/hr Q6H IV Last administered on 12/09/16 08:32; Start 12/08/16 at 21:00; Stop at 09:29; Status DC Miscellaneous Information (Post-op Orders (for Pharmacy)) STAT ONCE XX ; Start 12/08/16 at 16:45; Stop 12/08/16 at 17:11; Status DC Warfarin Sodium (Coumadin) Follow Sliding Scale... 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 INSPECTOR Last administered on 12/09/16 20:52; Start 12/08/16 at 17:30; Stop 12/12/16 at 15:24 ; Status DC Acetaminophen/ Hydrocodone Bitart ([place] 7.5-325 Mg) 1 tab Q4H PRN PO PAIN LESS THAN 5 ON SCALE; Start 12/08/16 at 16:45; Stop 12/12/16 at 15:24; Status DC Acetaminophen/ Hydrocodone Bitart ([place] 7.5-325 Mg) 2 tab Q4H PRN PO PAIN SCALE 5 TO 10 Last administered on 12/12/16 11:47; Start 12/08/16 at 16:45; Stop 12/12/16 at 15:24; Status DC Ondansetron HCl (Zofran Inj) 4 mg Q6H PRN IVP NAUSEA OR VOMITING; Start at 16:45; Stop 12/12/16 at 15:24; Status DC Al Hydrox/Mg Hydrox/Simethicone (Mag-Al Plus Susp Liq) 30 ml Q6H PRN PO INDIGESTION; Start 12/08/16 at 16:45; Stop 12/12/16 at 15:24; Status DC Zolpidem Tartrate (Ambien) 5 mg HS PRN PO SLEEP; Start 12/08/16 at 16:45; Stop 12/12/16 at 15:24; Status DC Fentanyl Citrate (fentaNYL INJ) 250 mcg STK-MED ONCE .ROUTE ; Start 12/08/16 at 16:44; Stop 12/08/16 at 16:45; Status DC Fentanyl Citrate (fentaNYL INJ) 250 mcg STK-MED ONCE .ROUTE ; Start 12/08/16 at 16:44; Stop 12/08/16 at 16:45; Status DC Miscellaneous Information ALL NURSING DEPARTME... UNSCH PRN .XX SEE LABEL COMMENTS; Start 12/08/16 at 17:15; Stop 12/09/16 at 17:14; Status DC Pantoprazole Sodium (Protonix) 40 mg DAILY PO Last administered on 12/12/16 09 :09; Start 12/09/16 at 09:00; Stop 12/12/16 at 15:24; Status DC Patient Own Medication PT OWN MED: METFOR... HS PO ; Start 12/08/16 at 21:00; Stop 12/12/16 at 15:24; Status DC Patient Own Medication PT OWN MED: ESTRAD... DAILY PO ; Start 12/09/16 at 09:00 ; Stop 12/12/16 at 15:24; Status DC Pravastatin Sodium (Pravachol) 40 mg HS PO Last administered on 12/11/16 19:56 ; Start 12/08/16 at 21:00; Stop 12/12/16 at 15:24; Status DC Miscellaneous Information ALL NURSING DEPARTME... UNSCH PRN .XX SEE LABEL COMMENTS; Start 12/08/16 at 17:45; Stop 12/09/16 at 17:44; Status DC Gentamicin Sulfate (Gentamicin Inj) 240 mg STK-MED ONCE .ROUTE Last administered on 12/09/16 13:31; Start 12/09/16 at 13:08; Stop 12/09/16 at 13:09 ; Status DC Fentanyl Citrate (fentaNYL INJ) 250 mcg STK-MED ONCE .ROUTE ; Start 12/09/16 at 14:18; Stop 12/09/16 at 14:19; Status DC Multi-Ingredient Mouthwash/Gargle (Magic Mouthwash Adult Liq) 5 ml QID SWISH- SWAL Last administered on 12/12/16 11:46; Start 12/09/16 at 18:00; Stop at 15:24; Status DC Acetaminophen (Ofirmev Inj) 1,000 mg STK-MED ONCE IV ; Start 12/09/16 at 14:45; Stop 12/09/16 at 14:46; Status DC Midazolam HCl (Versed Inj) 2 mg STK-MED ONCE .ROUTE ; Start 12/09/16 at 14:46; Stop 12/09/16 at 14:47; Status DC Metoclopramide HCl (Reglan Inj) 10 mg STK-MED ONCE .ROUTE ; Start 12/09/16 at 14 :47; Stop 12/09/16 at 14:48; Status DC Famotidine (Pepcid Inj) 20 mg STK-MED ONCE .ROUTE ; Start 12/09/16 at 14:47; Stop 12/09/16 at 14:48; Status DC Vancomycin HCl 1000 mg 1,000 mg STK-MED ONCE .ROUTE Last administered on 15:29; Start 12/09/16 at 15:23; Stop 12/09/16 at 15:24; Status DC Cefazolin Sodium/ Sodium Chloride (Ancef Inj/NS Inj) 100 ml @ 200 mls/hr Q6H IV Last administered on 12/11/16 09:33; Start 12/09/16 at 21:00; Stop at 09:29; Status DC Warfarin Sodium (Coumadin) Follow Sliding Scale... DAILY@1600 PO Last administered on 12/11/16 17:00; Start 12/10/16 at 16:00; Stop 12/12/16 at 07:13 ; Status DC Miscellaneous Information ALL NURSING DEPARTME... UNSCH PRN .XX SEE LABEL COMMENTS; Start 12/09/16 at 17:15; Stop 12/10/16 at 17:14; Status DC Ferrous Sulfate (Ferrous Sulfate) 325 mg BID PO Last administered on 12/12/16 09:09; Start 12/10/16 at 09:00; Stop 12/12/16 at 15:24; Status DC Dextrose (D50w (Vial) Inj) 50 ml UNSCH PRN IV HYPOGLYCEMIA-SEE COMMENTS; Start 12/11/16 at 08:30; Stop 12/12/16 at 15:24; Status DC Glucagon (Glucagon Inj) 1 mg UNSCH PRN OTHER HYPOGLYCEMIA-SEE COMMENTS; Start 12/11/16 at 08:30; Stop 12/12/16 at 15:24; Status DC Insulin Aspart (NovoLOG SUPPLEMENTAL SCALE) 1 ACHS SLIDING SCALE SQ Last administered on 12/11/16 16:00; Start 12/11/16 at 11:00; Stop 12/12/16 at 15:24 ; Status DC Warfarin Sodium (Coumadin) Follow Sliding Scale... DAILY@1600 PO ; Start at 16:00; Stop 12/13/16 at 16:00; Status DC Warfarin Sodium (Coumadin) 5 mg ONCE ONCE PO Last administered on 12/12/16 11 :46; Start 12/12/16 at 12:00; Stop 12/12/16 at 12:01; Status DC A/P Problem List: (1) Osteoarthritis of left knee ICD Code: M17.12 Status: Acute Assessment and Plan 66-year-old female with bilateral knee osteoarthritis, hypertension, hyperlipidemia, diabetes presented to same day surgery for elective left knee surgery Bilateral osteoarthritis of the knee Status post left total knee replacement by Dr. Burns 12/09/16, she fell 12/09 wound vac placed which was already discontinued. Stable continue postoperative care with physical therapy, wound care, incentive spirometry, pain management and DVT prophylaxis with Coumadin Management per orthopedic doctor. Anemia secondary to acute blood loss. stable. no signs of active bleeding. Mild leukocytosis likely reactive. no signs of infection. remains afebrile. Chronic medical problems appear stable at this time. Hypertension, hyperlipidemia, diabetes. Monitor closely vital signs. Monitor blood sugar. Restart home medications. Tachycardia and slightly elevated BP likely 2/2 pain. DVT prophylaxis SCD/teds. Coumadin Discharge Planning patient is medically cleared for discharge. Aparna Monzon MD December 12, 2016 17:23
[2016-12-13] MEDS ORDERED: WARFARIN SOD 5 MG TAB PO SCH (16:00)
--- NOTE | 2016-12-19 08:46 | HHI.DS ---
Discharge Summary Admission Date December 08, 2016 at 12:07 Discharge Date: December 12, 2016 Admitting Diagnosis left knee osteoarthritis Diagnosis: (1) Osteoarthritis of left knee Diagnosis: Principal Procedures L TKA Brief History This is a 66 year old female patient who presents with the following history. Patient complains of increasing right knee pain for the last five years. She has tried over the counter anti-inflammatories. She has tried therapy. She had an intra-articular steroid injection. She states the knee pain is now interfering with activities of daily living such as stepping up stairs, etc. She would like to proceed forward with surgical intervention. Imaging x-rays of the right knee show severe patellofemoral joint osteoarthritis PE at Discharge seen by Dr. Nicolás Hernández left knee dressing dry and intact N/V intact Neg vinnie's,no calf tenderness Hospital Course Patient underwent satisfactory anaesthesia by the dept of anaesthesia. She underwent left total knee arthroplasty on the date of admission. She was treated with low dose coumadin night before procedure and will be treated with low dose coumadin for four weeks post-operatively. She did well following the procedure. She was started with full weight bearing ambulation and CPM machine on pod #1. She was also seen and followed by medical during her stay and was treated with knee high TEDs and sequentials. She progressed well and was discharged home with [facility] for further nursing and PT on pod #4, she would have been discharged sooner but there was a delay in receiving authorization for her [facility] through her insurance company. Pt Condition on Discharge: Stable Discharge Disposition: Disch w/ Home Health Serv Discharge Instructions Diet Instructions: Coumadin (Warfarin) Diet Activities You Can Perform: Weight Bearing as America Bond Dec 19, 2016 08:46
== END 2016-12-12 15:23 | disposition home health service (06) | DRG 470 ==
LOC: HSDI 12-08 12:07 → N06A 12-08 17:55
PROVIDERS: ADMIT Orthopaedic Surgery Orthopaedic Surgery of the Spine; ATTEND Orthopaedic Surgery Orthopaedic Surgery of the Spine
PROC: 0SRD0J9 Replacement of Left Knee Joint with Synthetic Substitute, Cemented, Open Approach (ICD-10-PCS; principal; 2016-12-08 14:06)
PROC: 0YQG0ZZ Repair Left Knee Region, Open Approach (ICD-10-PCS; 2016-12-09)
DX: M17.0 Bilateral primary osteoarthritis of knee (principal); D62 Acute posthemorrhagic anemia; T81.32XA Disruption of internal operation (surgical) wound, not elsewhere classified, initial encounter; W07.XXXA Fall from chair, initial encounter; Y92.230 Patient room in hospital as the place of occurrence of the external cause; I10 Essential (primary) hypertension; E11.9 Type 2 diabetes mellitus without complications; Z79.84 Long term (current) use of oral hypoglycemic drugs; D72.829 Elevated white blood cell count, unspecified; K21.9 Gastro-esophageal reflux disease without esophagitis; Z53.09 Procedure and treatment not carried out because of other contraindication; F17.210 Nicotine dependence, cigarettes, uncomplicated; S80.261A Insect bite (nonvenomous), right knee, initial encounter
CPT/HCPCS: 73560; 82948; 85014; 85018; 85027; 85610; 86850; 86900; 86901; 94150; C1776; J0131; J0171; J0690; J0735; J1100; J1580; J1815; J1885; J2250; J2270; J2370; J2405; J2710; J2765; J2795; J3010; J3370; J7050; J7120; L1830

== ENCOUNTER → 2016-11-26 | Outpatient (CLI) | payer MEDICARE ==
[~2016-11-26] MED LIST: ALPR0.5T3 PO; COUM1TAB PO; CPMMACHINE; ESOM1CAP16 PO; ESTR2TAB4 PO; HYDR-3288 PO; LISI-519 PO; LOPE2TAB3 PO; LYRI75CA PO; MEDR2.5T2 PO; MELO-1 PO; METF750T PO; MULT1TAB84 PO; ZOCO20TA PO
[2016-11-26 11:19] LABS: AUTOMATED NEUTROPHIL # 5.4 TH/MM3 (1.8-7.7); BASOPHIL # 0.1 TH/MM3 (0-0.2); BASOPHIL % 0.8 % (0.0-2.0); EOSINOPHIL # 0.3 TH/MM3 (0-0.4); EOSINOPHIL % 3.3 % (0.0-4.0); HEMATOCRIT 42.1 % (35.0-46.0); HEMO FLAGS DIFF FINAL; LYMPH % 33.9 % (9.0-44.0); LYMPHOCYTE # 3.3 TH/MM3 (1.0-4.8); MEAN CELL VOLUME 82.4 FL (80.0-100.0); MEAN CORPUSCULAR HEMOGLOBIN 28.1 PG (27.0-34.0); MEAN CORPUSCULAR HGB CONC 34.1 % (32.0-36.0); MONO % 5.6 % (0.0-8.0); NEUT % 56.4 % (16.0-70.0); PLATELET COUNT 238 TH/MM3 (150-450); RED CELL DISTRIBUTION WIDTH 13.5 % (11.6-17.2); WHITE BLOOD COUNT 9.6 TH/MM3 (4.0-11.0)
[2016-11-26 11:25] LABS: BLOOD, URINE SMALL (NEG); GLUCOSE,URINE NEG (NEG); GRANULAR CAST, URINE 1 /lpf; KETONE, URINE NEG (NEG); MUCUS URINE MANY /lpf (OCC); NITRITE,URINE NEG (NEG); PH, URINE 5.5 (5.0-8.5); SQUAMOUS EPITHELIAL CELL URINE 4 /hpf (0-5); URINE COLOR YELLOW (YELLW/STRAW)
[2016-11-26 11:32] LABS: COMMENT (UR) CULT NOT INDICATED; CULTURE IF INDICATED CULT NOT INDICATED
[2016-11-26 11:41] LABS: BICARBONATE 31.9 MEQ/L (21.0-32.0); POTASSIUM 3.8 MEQ/L (3.5-5.1)
[2016-11-26 14:30] LABS: MRSA PCR NEGATIVE (NEGATIVE); STAPH AUREUS PCR NEGATIVE (NEGATIVE)
--- NOTE | 2016-11-27 15:14 | EKG ---
Date Performed: 11/26/2016 Time Performed: 10:36:51 PTAGE: 66 years EKG: Sinus rhythm NORMAL ECG NO PREVIOUS TRACING DOCTOR: Les Gomez Interpretating Date/Time 11/27/2016 15:11:03
== END ==
LOC: CPRE 10:13
PROVIDERS: ATTEND Orthopaedic Surgery Orthopaedic Surgery of the Spine
DX: Z01.810 Encounter for preprocedural cardiovascular examination (principal); Z01.812 Encounter for preprocedural laboratory examination; M17.10 Unilateral primary osteoarthritis, unspecified knee
CPT/HCPCS: 36415; 80048; 81001; 85025; 87640; 87641; 93005

== ENCOUNTER 2017-03-09 14:30 | Inpatient (IN) | payer MEDICARE ==
[~2017-03-09] VITALS: Ht 152.4 cm; Wt 69.5 kg
[~2017-03-09 14:30] MED LIST changes: -MELO-1 PO; -MULT1TAB84 PO
[2017-05-25] MEDS ORDERED: VANCOMYCIN 1000 MG/NS 250 ML (for <70 kg) IV SCH ×4 (11:30)
[2017-05-25] MEDS ORDERED: INSULIN HUMAN REGULAR 1,000 UNITS/10 ML VIAL SQ PRN ×2 (11:30)
[2017-05-25] MEDS ORDERED: CHLORHEXIDINE GLUCONATE 4% SOLN 120 ML BTL TOPICAL SCH ×2 (11:30)
[2017-05-25] MEDS ORDERED: METOPROLOL TARTRATE 25 MG TAB PO PRN ×2 (11:30)
[2017-05-25] MEDS ORDERED: SODIUM CHLORID 0.9% 500 ML IV PRN ×2 (11:30)
[2017-05-25] MEDS ORDERED: CHLORHEXIDINE GLUCONATE 2 % 1 PACK (2 CLOTHS) TOPICAL PRN ×2 (11:30)
[2017-05-25] MEDS ORDERED: ceFAZolin 2 GM PREMIX 50 ML IV SCH ×2 (11:30)
[2017-05-25] MEDS ORDERED: MEDR2.5T4 ×2 (11:42)
[2017-05-25] MEDS ORDERED: MELO-1 PO ×2 (11:42)
[2017-05-25] MEDS ORDERED: CITA40TA4 PO ×2 (11:42)
[2017-05-25] MEDS: POVIDONE IODINE 5% (ANTISEPSIS KIT) 4 APPLICATIONS EACH NARE PRN ×4 (11:57→13:14)
[2017-05-25] MEDS: LACTATED RINGER'S 1000 ML IV PRN ×4 (11:57→13:14)
[2017-05-25] MEDS ORDERED: GENTAMICIN SULFATE 80 MG/2 ML VIAL ONE ×2 (12:30)
[2017-05-25] MEDS ORDERED: ACETAMINOPHEN 1000 MG/100 ML 100 ML IV ONE ×2 (12:32)
[2017-05-25] MEDS ORDERED: BUPIVACAINE HCL PF 0.5% 30 ML VIAL ONE ×2 (12:33)
[2017-05-25] MEDS ORDERED: ROPIVACAINE PERI-ARTICULAR INJECTION. P-ARTICULR SCH ×10 (13:00)
[2017-05-25] MEDS ORDERED: ALUMINUM/MAGNESIUM/SIMETH 30 ML CUP PO PRN ×2 (16:30)
[2017-05-25] MEDS ORDERED: ZOLPIDEM TARTRATE 5 MG TAB PO PRN ×2 (16:30)
[2017-05-25] MEDS ORDERED: Post-op Orders (for Pharmacy) MISC XX ONE ×2 (16:30)
[2017-05-25] MEDS ORDERED: ACETAMINOPHEN/HYDROcodone 325 MG/7.5 MG TAB PO PRN ×2 (16:30)
[2017-05-25] MEDS ORDERED: MORPHINE SULFATE 8 MG/ML INJ IM PRN ×2 (16:30)
[2017-05-25] MEDS ORDERED: SODIUM CHLORIDE 0.9% FLUSH 5 ML FLUSH IVF PRN ×2 (16:30)
[2017-05-25] MEDS ORDERED: ONDANSETRON HCL 4 MG/2 ML VIAL IVP PRN ×2 (16:30)
[2017-05-25] MEDS ORDERED: ALPRAZolam 0.5 MG TAB PO PRN ×2 (16:30)
[2017-05-25] MEDS ORDERED: CPMMACHINE ×2 (16:31)
[2017-05-25] MEDS ORDERED: WALKER WHEELS/F1 MIS ×2 (16:31)
[2017-05-25] MEDS ORDERED: DO NOT ADM ANY ANTICOAGULANT DRUGS PRN ×2 (16:45)
--- NOTE | 2017-05-25 16:47 | HHI.PR ---
Immediate Post Op Note Procedure Date: May 25, 2017 Pre Op Diagnosis: (1) Osteoarthritis of right knee Post Op Diagnosis: (1) Osteoarthritis of right knee Surgeon: Nicolás Heránndez M.D. Clinical Rehabilitation Coordinator(s): America Aburto PA-c Procedure: R TKA Complications: none Specimen(s) removed: none Estimated blood loss: less than 25 cc Anesthesia: General, Regional Block, Local Drains: Hemovac IVF Tourniquet time (min at mmHg) 52 min @ 250 mmHG Patient to: PACU Patient Condition: Good Implant/Devices: SEE IMPLANT LOG (if applicable) Date/Time of Procedure: SEE SURGICAL CARE RECORD Nicolás Hernández MD May 25, 2017 16:47
[2017-05-25] MEDS: LACTATED RINGER'S 1000 ML INJ 1,000 ML IV SCH ×2 (17:13)
[2017-05-25] MEDS ORDERED: *morphine SULFATE 8 MG/ML PERIprocedure ONLY ONE ×2 (17:33)
--- NOTE | 2017-05-25 17:36 | RADRPT ---
EXAM DATE/TIME: 05/25/2017 17:00 [place] COMPARISON: No previous studies available for comparison. INDICATIONS : Evaluate right total knee arthroplasty MEDICAL HISTORY : Arthritis. SURGICAL HISTORY : Total knee replacement, left. ENCOUNTER: Initial ACUITY: 1 day PAIN SCORE: 0/10 LOCATION: Right Knee FINDINGS: AP and lateral views of the knee following arthroplasty reveals a prosthesis in anatomic alignment. F racture is not appreciated. Surgical drain is evident CONCLUSION: Status post total knee arthroplasty. Ernesto Yang MD FACR Board Certified Radiologist. This report was verified electronically.
[2017-05-25] MEDS: ACETAMINOPHEN/HYDROcodone 325 MG/7.5 MG TAB PO PRN ×4 (18:01→22:08)
[2017-05-25 20:00] VITALS: BP 120/65; PULSE 86; RESP 18; TEMP 95.6; O2SAT 96
[2017-05-25] MEDS ORDERED: METFORMIN 750 MG PO SCH ×4 (21:00)
[2017-05-25] MEDS: SODIUM CHLORIDE 0.9% FLUSH 5 ML FLUSH IVF SCH ×2 (21:00)
[2017-05-25] MEDS ORDERED: PRAVASTATIN SOD 40 MG TAB PO SCH ×2 (21:00)
[2017-05-25] MEDS ORDERED: NON-FORMULARY DRUG (Simvastatin (Zocor) 20 MG) PO SCH ×2 (21:00)
[2017-05-25] MEDS ORDERED: PREGABALIN 75 MG CAP PO SCH ×2 (21:00)
[2017-05-26 00:11] VITALS: BP 114/60; PULSE 82; RESP 17; TEMP 97.7; O2SAT 96
[2017-05-26 04:00] VITALS: BP 105/60; PULSE 83; RESP 16; TEMP 97.7; O2SAT 96
[2017-05-26] MEDS: LACTATED RINGER'S 1000 ML INJ 1,000 ML IV SCH ×2 (05:30)
[2017-05-26 06:43] LABS: HEMATOCRIT 27.7 % (35.0-46.0)
[2017-05-26 06:59] LABS: PROTHROMBIN TIME - PATIENT 22.3 SEC (9.8-11.6)
--- NOTE | 2017-05-26 07:10 | PD.ORT.PN ---
Subjective Subjective Remarks POD#1 R TKR No chest pain;no SOB Patient wishes to go home today Objective Vitals Vital Signs Date Time Temp Pulse Resp B/P (MAP) Pulse Ox O2 Delivery O2 Flow Rate FiO2 05/26/17 04:00 97.7 83 16 105/60 (75) 96 05/26/17 00:11 97.7 82 17 114/60 (78) 96 05/25/17 20:00 95.6 86 18 120/65 (83) 96 05/25/17 18:00 97.5 80 16 110/61 (77) 96 Nasal Cannula 3 05/25/17 17:45 80 17 102/60 (74) 96 Nasal Cannula 3 05/25/17 17:30 79 16 123/58 (79) 98 Nasal Cannula 3 05/25/17 17:15 81 18 126/60 (82) 93 Nasal Cannula 3 05/25/17 17:00 82 17 130/60 (83) 92 Nasal Cannula 3 05/25/17 16:45 92 13 146/56 (86) 93 Nasal Cannula 3 05/25/17 16:38 97.9 100 17 146/67 (93) 95 Nasal Cannula 3 05/25/17 11:46 97.9 64 16 179/63 (101) 98 I/O 05/25/17 05/25/17 05/25/17 05/26/17 05/26/17 05/26/17 07:00 15:00 23:00 07:00 15:00 23:00 Intake Total 1815 ml 480 ml Output Total 3475 ml Balance -1660 ml 480 ml Intake Oral 740 ml 480 ml IV Total 1075 ml Output Urine Total 400 ml Drainage Total 50 ml Estimated Blood Loss 25 ml Other 3000 ml # Voids 5 3 # Bowel Movements 0 0 Result Diagram: 05/26/17 0605 Other Results Laboratory Tests Test 05/26/17 06:05 Imaging Last 24 hours Impressions Knee X-Ray 05/25/17 1623 Signed Impressions: Service Date/Time: Thursday, May 25, 2017 17:00 - CONCLUSION: Status post total knee arthroplasty. Ernesto Yang MD Objective Remarks N/V intact Dressings already changed,wound healing well Assessment & Plan Assessment and Plan Ortho stable Discharge home today Patient will do therapy by herself and at home Laurie Owens,sequentials for DVT prophylaxsis Nicolás Hernández MD May 26, 2017 07:10
--- NOTE | 2017-05-26 07:17 | MP ---
cc: BULMARO DELONG D.O., ALBERT DATE OF SURGERY 05/25/2017 PREOPERATIVE DIAGNOSIS Right knee severe tricompartmental osteoarthritis. POSTOPERATIVE DIAGNOSIS Right knee severe tricompartmental osteoarthritis. PROCEDURE Right total knee arthroplasty - cemented [employer]. SURGEON Cris Hernández MD ASSESSMENT America Aburto PA-C SPECIMENS None. ESTIMATED BLOOD LOSS Less than 25 cc. COMPLICATIONS None. ANESTHESIA General, adductor canal block, intraarticular injection. DRAINS Two. TOURNIQUET TIME 53 minutes at 250 mmHg CONDITION Stable. PLAN OF ACTIVITY As per orders. PROCEDURE My research program assistant America Aburto PA-C, was present for the entire surgical case. She was medically necessary for the entire case because of the complexity of the case and to facilitate the performance of the procedure. The PRODUCTION EDITOR at the back table was not of the skill set for this case to manipulate the instruments e.g. the multiple different soft tissue tractors, trial implants and permanent plans including bone cement. The patient was brought into the operating room and had satisfactory anesthesia by Dr. Nigel Lyons of the Department of Anesthesia. The right lower extremity was prepped and draped in the usual sterile fashion. The extremity was exsanguinated by elevation, tourniquet inflated to 250 mmHg. Small anterior exposure to the knee was made. A paramedian capsulotomy was performed, the patella dislocated posteriorly. The patient was found to have severe osteoarthritis especially involving the patellofemoral compartment. The remaining portions of the medial and lateral meniscus were removed. The anterior cruciate ligament was removed. The posterior cruciate ligament was preserved. The prepatellar fat pad was excised. Using IM guide from the [employer] system, distal femoral cut was made 5 degrees valgus to accept a 62.5 mm femoral component. The extramedullary guide was used for the tibia to accept a 67 mm tibial component. Balancing was performed with flexion/extension with a 10 mm insert. The undersurface of the patella was removed to accept a 28 three-pronged patellar prosthesis. The patient was found to have excellent range of motion, satisfactory stability of the knee joint and of the patellofemoral compartment. All trial components removed and preparation for cementing was made. Two packages of Palacos high viscosity bone cement was used. First the tibial component was cemented which is a 67 mm tibial component, followed by the femoral component which is a 62.5 mm femoral component and then the patella which is a 28 mm three-pronged patellar prosthesis. All excess bone cement was removed and the bone cement was allowed to harden for 12-1/2 minutes. A 10 x 67 polyethylene plastic was sewn onto the tibial tray and appropriate clipping mechanism. The knee was also injected with 100 cc of local anesthesia provided by the Department of Pharmacy. The knee was irrigated with 4000 cc of sterile saline antibiotic solution using the Water [employer] irrigation system. The tourniquet was deflated. All bleeders were coagulated. The would was closed over two Hemovac drains hooked up to an Autovac type system. The patellofemoral compartment revealed satisfactory tracking of the patella within the patellofemoral compartment. Lateral retinacular release was not necessary. The wound was closed in routine manner. The capsule and subcutaneous tissue was closed with #2 Tycron suture. The subcuticular layer with 0 Vicryl and 2-0 Vicryl. The skin was approximated with stainless steel skin monica. Sterile dressing was applied. The patient tolerated the procedure well and arrived in the recovery room in stable and satisfactory condition. MD SHELBI Baron/PRESLEY /4:44 PM /7:10 AM
[2017-05-26 08:00] VITALS: BP 112/67; PULSE 80; RESP 18; TEMP 98.2; O2SAT 94
[2017-05-26] MEDS ORDERED: COUM1TAB PO ×2 (08:54)
[2017-05-26] MEDS ORDERED: PANTOPRAZOLE SOD 40 MG DELAYED RELEASE TAB PO SCH ×2 (09:00)
[2017-05-26] MEDS ORDERED: ESOMEPRAZOLE 40 MG PO SCH ×2 (09:00)
[2017-05-26] MEDS ORDERED: LISINOPRIL 5 MG TAB PO SCH ×2 (09:00)
[2017-05-26] MEDS ORDERED: CITALOPRAM HYDROBROMIDE 40 MG TAB PO SCH ×2 (09:00)
[2017-05-26] MEDS: ACETAMINOPHEN/HYDROcodone 325 MG/7.5 MG TAB PO PRN ×2 (09:07)
[2017-05-26] MEDS: SODIUM CHLORIDE 0.9% FLUSH 5 ML FLUSH IVF SCH ×2 (09:08)
[2017-05-26] MEDS ORDERED: WARFARIN SOD 5 MG TAB PO SCH ×2 (16:00)
== END 2017-05-26 11:56 | disposition home or self-care (01) | DRG 470 ==
LOC: HSDI 05-25 10:55 → N06B 05-25 18:34
PROVIDERS: ADMIT Orthopaedic Surgery Orthopaedic Surgery of the Spine; ATTEND Orthopaedic Surgery Orthopaedic Surgery of the Spine
PROC: 3E0T3BZ Introduction of Anesthetic Agent into Peripheral Nerves and Plexi, Percutaneous Approach (ICD-10-PCS; 2017-05-25)
PROC: 0SRC0J9 Replacement of Right Knee Joint with Synthetic Substitute, Cemented, Open Approach (ICD-10-PCS; principal; 2017-05-25 14:15)
DX: M17.11 Unilateral primary osteoarthritis, right knee (principal); E11.9 Type 2 diabetes mellitus without complications; K21.9 Gastro-esophageal reflux disease without esophagitis; F12.90 Cannabis use, unspecified, uncomplicated; F41.9 Anxiety disorder, unspecified; Z79.84 Long term (current) use of oral hypoglycemic drugs; Z85.3 Personal history of malignant neoplasm of breast
CPT/HCPCS: 73560; 85014; 85018; 85610; 86850; 86900; 86901; 86920; 94150; J0131; J0690; J0735; J1580; J1885; J2270; J2795; J3370; J7050; J7120

== ENCOUNTER → 2017-05-07 | Day surgery (SDC) | payer MEDICARE ==
[~2017-05-07] MED LIST changes: +ACETAMINOPHEN 1000 MG/100 ML 100 ML IV ONE; +BUPIVACAINE/EPINEPHRINE 0.25% 50 ML VIAL ONE; +ISOSULFAN BLUE 50 MG/5 ML VIAL SQ ONE; +LACTATED RINGER'S 1000 ML INJ 1,000 ML ONE; +LIDOCAINE HCL 1% PF 30 ML VIAL ONE; +MIDAZOLAM HCL 2 MG/2 ML VIAL ONE; +ONDANSETRON HCL 4 MG/2 ML VIAL IV PUSH ONE; +PROPOFOL 100 MG/10 ML INJ IV ONE; +VANCOMYCIN HCL 1000 MG VIAL ONE; +ceFAZolin INJ 1,000 MG VIAL ONE
--- NOTE | 2017-05-07 18:09 | MP ---
cc: SHARA MOSES,TAD CANNON MD, CRAIG DATE OF SURGERY 05/07/2017 PROCEDURE 1. Injection Lymphazurin blue dye. 2. Intraoperative localization right axillary sentinel lymph nodes 3. Excision right axillary sentinel lymph nodes x2 4. Needle-localized right breast lumpectomy DIAGNOSIS Invasive ductal carcinoma right breast. POSTOPERATIVE DIAGNOSIS Invasive ductal carcinoma right breast. ANESTHESIA LMA. SURGEON Marianna Quintanilla MD ESTIMATED BLOOD LOSS 75 mL FLUIDS 1150 mL crystalloid COMPLICATIONS None. DRAINS None. SPECIMEN [place] lymph nodes right axilla and right breast needle-localized tissue to pathology. PROCEDURE IN DETAIL The patient was seen in the department of radiology where she underwent needle localization and injection with technetium 99 sulfur colloid. She returned to the Department of nuclear medicine where lymphoscintigraphy failed to demonstrate sentinel lymph nodes. However, the lesion was superior and lateral and was likely overlying the lymph nodes. The patient was brought to the operating room after marking the correct breast and confirming this with the patient. She was placed on the operating table in the supine position. After an adequate level of laryngeal mask anesthesia was instituted, time-out was taken confirming the correct patient, site and procedure to be performed. Approximately four mL of Lymphazurin blue dye was injected in the periareolar and peritumor spaces. The breast was then completely prepped and draped. Incision was made just medial to the needle insertion site and dissection carried out laterally to the needle. The needle was cut at the skin and brought into the wound. A generous core of tissue was removed including the mass. This was sent for specimen imaging which demonstrated the lesion to be present in the specimen. At this point, most of the activity had been removed and the axilla could be better examined with the probe. Blue channels were examined and the probe directed dissection to two lymph nodes which were both blue and had activity above background. Both of these were excised and passed off the table. Careful examination of the axilla revealed no further activity above background, and no clinically suspicious nodes by palpation. At this point, all of the tissue was made hemostatic with electrocautery. When this was completed, the wound was closed in two layers with interrupted 3-0 Vicryl suture and 5-0 PDS in a running subcuticular fashion. The wound was dressed with Steri-Strips. The patient was extubated and taken back to the recovery room in stable condition. She tolerated the procedure well. Sponge, needle and instrument counts were reported to be correct. MD LOLIS Guadalupe/ /3:09 PM /5:56 PM LIAM
== END | disposition home or self-care (01) ==
LOC: ESDC 08:53
PROVIDERS: ATTEND Surgery Trauma Surgery
DX: C50.911 Malignant neoplasm of unspecified site of right female breast (principal)
CPT/HCPCS: 00400; 01610; 19125; 38525; 38792; 88307; J0131; J0690; J2250; J2405; J3010; J3370; J7120; Q9968; 88309